=== PATIENT | male | born 1955 | race Two or more races ===

== ENCOUNTER 2019-04-10 09:51 | Emergency (ER) | payer OTHER ==
[~2019-04-10] VITALS: Ht 172.7 cm; Wt 77.1 kg
--- NOTE | 2019-04-10 09:59 | NUR ---
ED Nurse Note: Pt ambulated to ed with right foot boot and crutches. pt reports that he needs help being readmitted to [facility] after being labeled "PHOEBE" per facility. pt states he had his right two toes amputated at [facility] x 3 months ago. pt says foot is slightly tender, but denies pain. No open wound present.
--- NOTE | 2019-04-10 10:04 | NUR ---
ED Nurse Note: grab jack worker has been called.
--- NOTE | 2019-04-10 10:14 | Emergency Room Report ---
History of Present Illness General Chief Complaint: To Be Triaged Source: Patient Present Illness HPI Disclaimer: Please note that this report is being documented using DRAGON technology. This can lead to erroneous entry secondary to incorrect interpretation by the dictating instrument. HPI: 63-year-old male presents requesting housing assistance. The patient had a injury to the fourth and fifth toes on the right foot 3 months ago resulting in infection with gangrene and eventual amputation. He has been at [facility] living [facility] for wound care for the past 3 months. Yesterday he stayed out past curfew and was not allowed to return. He requests help finding housing. Denies any new purulence, pain, drainage, wound dehiscence in the foot. No no injury, no fever or other changes in his health reported. PMH: Schizophrenia, depression PSH: Toe amputations Allergies: None Social Hx: Denies Allergies: Coded Allergies: No Known Allergies (Unverified , 04/10/19) Review of Systems All Other Systems: negative except mentioned in HPI Physical Exam General: Awake and alert, no acute distress HEENT: NC/AT. EOMI. Resp: Normal work of breathing Skin: Intact. No wound dehiscence on the right foot, no purulent drainage, no erythema, no warmth. The amputation sites over the fourth and fifth phalanges clean dry and intact. MSK: Normal tone and bulk. Moving all extremities. No obvious deformity. Amputation site over the fourth and fifth phalanges on the right foot clean dry and intact. There is mild tenderness over the amputation site. Neuro: Awake and alert. Mentating appropriately. Sensation intact over the lower extremities. Medical Decision Making Diagnostic Impression: Primary Impression: Visit for wound check Additional Impression: Housing problems ER Course 63-year-old male with history of toe amputation presents requesting housing assistance. Contacted [facility] who states the patient eloped yesterday. He has been a resident for 3 weeks is medically stable and does not require further wound care or treatment according to them. Dr. Walls from from surgical department evaluated the patient's wounds and determined that they are not infectious, healing well and does not require hospitalization at this time. Patient is well-appearing with no signs of infection or other changes in his health. Does not require emergent labs or imaging. Will discuss with social work regarding placement but the patient does not require hospitalization at this time. Enrique Hicks MDb 26, 2020 10:14
--- NOTE | 2019-04-10 10:15 | NUR ---
Ana Gamez was called spoke w/ religious assistant Brigida and she had stated that pt had eloped from facility on Monday and refused to sign AMA documents for proper discharge from the facility. Even if pt was to be medically cleared from facility pt will not be allowed to return to facility as a resident according the Casandra
--- NOTE | 2019-04-10 10:16 | NUR ---
refractory worker was called and asked to speak with pt
[2019-04-10 10:20] VITALS: BP 153/88
--- NOTE | 2019-04-10 10:20 | NUR ---
ED Nurse Note: reinforcing metal worker at bedside
--- NOTE | 2019-04-10 10:34 | NUR ---
ED Nurse Note: social worker aide no longer at bedside
--- NOTE | 2019-04-10 10:48 | NUR ---
TYPESETTER PERFORATOR OPERATOR NOTE SW met w/ pt and assessed pt's concern and needs. Pt presents as A&O4x and cooperative. Pt was at [facility] for 2 months. Pt was homeless for 20 years prior to his admission at SNF. Pt states he left SNF for a day to spend time w/ his friend. However, pt did not get a clearance from before leaving the facility. Pt uses tobacco, ETOH but denies other substance abuse. PT declined counseling/tx intervention/resource on substance abuse. PT receives GR and food stamp, has no income available for this month. Pt states he is able to navigate homeless resource in the community. Per request, JOEL provided a [facility] [place]. JOEL also provided the list of winter shelters, homeless shelters, a bus route to [facility], and the list of independent living facilities. JOEL encouraged pt to contact independent living facilities when he gets his income next month. Pt verbalized understanding. Pt is willing to go to homeless fci until he gets his income. Pt denies SI/HI. Pt is ambulatory w/ crutches. Pt wore appropriate weather clothing. Signed: 04/10/19 at 1126 by ARNOLD MALDONADO <Co-Signature Required>
--- NOTE | 2019-04-10 11:00 | NUR ---
Note timothy in EDM - 04/10/19 at 1124 by MARY ER DISCHARGE NOTE: Patient is cleared to be discharged per ERMD, pt is aox4, on room air, with stable vital signs. pt was given dc instructions, pt was able to verbalize understanding, pt id band removed. pt is able to ambulate with steady gait on crutches. pt took all belongings. pt given meal, a homeless resources, pt clothing adequate for weather. NAD noted.
--- NOTE | 2019-04-10 11:01 | NUR ---
ED Nurse Note: Pt righty foot redressed per technical support representative. pt given homeless resources. pt provided with TAP card.
--- NOTE | 2019-04-10 11:06 | NUR ---
ED Nurse Note: Provided pt with food and beverage. pt clothing adequate
[2019-04-10 11:21] VITALS: BP 146/83
--- NOTE | 2019-04-10 11:24 | NUR ---
ER DISCHARGE NOTE: Patient is cleared to be discharged per ERMD, pt is aox4, on room air, with stable vital signs. pt was given dc instructions, pt was able to verbalize understanding, pt id band removed. pt is able to ambulate with steady gait on crutches. pt took all belongings. pt given meal, a homeless resources, pt clothing adequate for weather. NAD noted.
--- NOTE | 2019-04-10 13:30 | Consultation ---
History of Present Illness General Date patient seen: Apr 10, 2019 Reason for Hospitalization: General Complaint Present Illness HPI This is a pleasant 63-year-old male who presented to ED at [facility] c/o right foot eval given prior amputation but also seeking assistance with housing. The patient had a injury to the fourth and fifth toes on the right foot 3 months ago resulting in infection with gangrene and eventual amputation. He has been at [facility] living [facility] for wound care for the past 3 months. Yesterday he stayed out past curfew and was not allowed to return. he came in for evaluation of his wound and to get help with housing. states he is serious about recover and wants to heal well. thinks he may be diabetic and wants to ensure good healing. surgery called to evaluate and assist with care. patient seen in ED, chart reviewed, patient examined. Denies any new purulence, pain, drainage, wound dehiscence in the foot. No no injury, no fever or other changes in his health reported. PMH: Schizophrenia, depression PSH: Toe amputations Allergies: None Social Hx: Denies Allergies: Coded Allergies: No Known Allergies (Unverified , 04/10/19) Patient History History Provided By: Patient Healthcare decision maker Resuscitation status Advanced Directive on File Review of Systems Review of Symptoms General ROS: no weight loss or fever Psychological ROS: no depression or mood changes, no memory loss Ophthalmic ROS: no visual changes or eye irritation ENT ROS: no nasal congestion, hearing loss, dizziness Allergy and Immunology ROS: no allergic symptoms or urticaria Hematological and Lymphatic ROS: no swollen glands, unusual bleeding or bruising Endocrine ROS: no polyuria, polydipsia, weight changes, temperature intolerance Respiratory ROS: no cough, shortness of breath, or wheezing Cardiovascular ROS: no chest pain or dyspnea on exertion Gastrointestinal ROS: denies abdominal pain, bright red blood in stool. Musculoskeletal ROS: no myalgias or arthralgias Neurological ROS: no TIA or stroke symptoms Dermatological ROS: no new or changing skin lesions, rashes or pruritis Physical Exam Physical Exam General appearance: alert, cooperative, no distress, appears stated age Head: Normocephalic, without obvious abnormality, atraumatic Eyes: conjunctivae/corneas clear. PERRL, EOM's intact. Fundi benign Throat: Lips, mucosa, and tongue normal. Teeth and gums normal Neck: supple, symmetrical, trachea midline, no adenopathy, thyroid: not enlarged, symmetric, no tenderness/mass/nodules, no carotid bruit and no JVD Lungs: clear to auscultation bilaterally Heart: regular rate and rhythm, S1, S2 normal, no murmur, click, rub or gallop Abdomen: soft, non-tender. Bowel sounds normal. No masses, no organomegaly Extremities: extremities s/p right foot 4/5th ray amputation, healing no signs of active infection Pulses: 2+ and symmetric Skin: Skin color, texture, turgor normal. No rashes or lesions Neurologic: Grossly normal Last 24 Hour Vital Signs Date Time Temp Pulse Resp B/P (MAP) Pulse Ox O2 Delivery O2 Flow Rate FiO2 04/10/19 11:21 98.3 88 17 146/83 97 Room Air 04/10/19 10:20 93 16 Room Air 04/10/19 10:20 98.1 93 16 153/88 99 Room Air 04/10/19 10:09 98.1 93 16 153/88 (109) 99 Room Air Height (Feet): 5 Height (Inches): 8.00 Weight (Pounds): 170 Assessment/Plan Problem List: (1) Amputation of toe of right foot Assessment & Plan: This is a 63-year-old male with amputation of his fourth and fifth ray right foot for infectious process potentially related to trauma and diabetes and poor care. Patient initially presented to outside facility with infection of his right foot fourth and fifth ray after having a small cut which worsened without appropriate care. He [id number] for the past 3 months receiving care but unfortunately recently was left without housing. He states he is very serious about his wound care and wants to make sure his wounds improve and he improves therefore he came to emergency room today for evaluation. Given recent surgery surgery called to evaluate with emergency room physician in the ED. Patient seen, patient evaluated, chart reviewed. Patient seems fairly reliable and states that he believes he may be a diabetic and has done everything to ensure proper care to his wound. He seems to keep it clean and have dressings applied. Dressings were removed and was in the wound was evaluated. There is good healing flap between the plantar aspect of the right foot fourth and fifth ray amputation site. No active drainage. No cellulitis no signs of acute active inflammatory or infectious process. Multiple calluses identified throughout the feet. No fluctuance. Otherwise stable and seems to be healing well. No acute surgical intervention necessary. No further antibiotics necessary at this time from surgical standpoint. Follow-up with original surgeon in 1 to 2 weeks for continued of care. Thank you for letting participate in patient's care ICD Codes: S98.131A - Complete traumatic amputation of one right lesser toe, initial encounter SNOMED: [id number], [id number] (2) Foot pain Assessment & Plan: Pain related to recent surgery. Patient amatory wounds okay. Please see above. Seems patient using pain as reason comer is warm and to find housing. He states he knows his wound is healing is doing well he just was not sure about how to get housing so again in the emergency department for evaluation potential admission and potential placement. Will defer to transition social worker ICD Codes: M79.673 - Pain in unspecified foot SNOMED: [id number] Feroz Walls Apr 10, 2019 13:30
== END 2019-04-10 11:28 | disposition home or self-care (01) ==
LOC: EMR 10:20
DX: Z09 Encounter for follow-up examination after completed treatment for conditions other than malignant neoplasm (principal); Z59.8 Other problems related to housing and economic circumstances; Z89.421 Acquired absence of other right toe(s)
CPT/HCPCS: 99284